=== PATIENT | female | born 1990 | race Caucasian/White ===

== ENCOUNTER 2017-04-13 16:59 | Emergency (ER) | payer MEDICAID ==
[~2017-04-13] VITALS: Ht 157.5 cm; Wt 59.0 kg
[~2017-04-13 16:59] MED LIST: DARVOCET-N 1001 EACH PO; DEPO-PROVER150 MG/M2 IM; FLEXERIL10 MG PO; IBU-8800 MG PO; LORAZEPAM0.5 MG/TAB FT; LORTAB 5/500 501 TAB PO; MEDROL 4MG. DOSE4 MG PO; MOTRIN400 MG PO; SEPTRA DS 800 M1 TAB PO; SULFAMETHOXAZOL1 TA6 PO; TAMIFLU 75MG CA75 MG PO; ZITHROMAX Z PA250 MG PO; ZITHROMAX Z-PA250 M1 PO; ZOLOFT 50MG TAB50 MG PO
--- NOTE | 2017-04-13 17:42 | Emergency Room Report ---
History of Present Illness Time Seen by 524Clive Presenting Problem in Triage Pt arrived:Walked Presenting Problem:PT REPORTS INTERMITTENT L ANKLE PAIN FOR APPROX 2 YEARS, PT REPORTS SHE BROKE HER ANKLE 2 YEARS AND HAD INTERMITTENT PAIN SINCE THEN. 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 N Clinical Suspician of Infection? N Mental Status: 1 - Regular (Normal Baseline) Sepsis Risk:Low Sepsis Risk Have you (or family members/close friends) recently traveled outside the [place]? N If Yes, where/when: Have you had exposure to infectious disease within the past month? N TB? Other? Specify: L foot pain after turning foot three days ago; has chronic pain as well to left lateral foot. Has a little swelling, no redness. Hx of fracture several years ago and has had pain since that time. No ankle pain. No numbness. ALLERGIES Coded Allergies: ampicillin (Intermediate, I-HIVES 09/19/15) Home Medications Reported Medications No Known Home Medications History Medical History General CAD? No Angina: No [place]: No Hypertension? No Hyperlipidemia? No CHF? No DVT? No PE? No COPD? No Asthma? Yes Anemia? No GERD? No Gastric ulcers? No GI Bleed? No Hernia? No Thyroid Problems? No Hypothyroidism? No CVA? No Seizures? No Diabetes? No Renal Insuffiency? No End Stage Renal Disease? No UTI? No Stones? No BPH? No GB Disease: No Nephritic Syndrome? No Asplenia? No Hepatitis? No Sickle Cell Disease? No Arthritis? No Migraines? No Cataracts? No Glaucoma? No MRSA? No HIV? No TB? No Anxiety? Yes Depression? Yes Cancer? No More? 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 Hx LMP N/A Family History Family Hx Diabetes Yes CAD Yes Hypertension Yes Hyperlipidemia Yes Cancer No TB No Social History Smoking Hx Smoker: Current Every Day Smoker Tobacco: Yes Type Cigarettes Packs/day < 1 Pack Alcohol Alcohol: No Review of Systems All Other Systems Reviewed and Negative Musculoskeletal see HPI Physical Exam Vital Signs Vital Signs Date Time Temp Pulse Resp B/P Pulse O2 O2 Flow FiO2 Ox Delivery Rate 04/13 1709 98.0 62 18 120/81 98 General Appearance normal appearance, WD/WN, no apparent distress Eye Exam - bilateral eye normal exam Respiratory Status No: respiratory distress. Cardiovascular no peripheral edema, normal peripheral pulses Extremities normal range of motion, normal inspection, normal capillary refill, No edema, some subjective tenderness along dorsolateral edge of proximal foot w/ o edema, crepitus, deformities, stepoffs, or streaks. n/v intact with brisk CR, sensate throughout. FROM all toes, ankle, knee. Wt bearing. Neurologic alert, normal exam, no motor/sensory deficits, oriented x 3 Medical Decision Making LABS/Meds/Orders Pt receiving controlled substance in ED? No Results/Orders Orders Procedure Date/time Status FOOT-LT-3 VIEWS 04/13 1749 Active XRAY/CT/US XRAY/CT/US XRAY foot XR interpretation by reviewed by me Xray Results normal/NAD, no fracture seen Departure Departure Time of Disposition 1808 Disposition DC Home or Self Care(routine) Clinical Impression Primary Impression: Left foot pain Condition STABLE Referrals NO REFERRAL (Family) Patient Instructions DI for Foot Pain Additional Instructions [phone] Call specialty clinic for an appointment with the medical secretary, Dr. Li, Rx Naproxen Discharge Counseling Counseled pt/family regarding diagnosis, test results, medications/RX, home care, follow up needs Prescriptions Current Visit Scripts NAPROXEN (NAPROXEN 500MG TAB) 500 MG PO BIDP PRN pain #20 TAB ED Critical Care Critical Care No at 1811
--- NOTE | 2017-04-13 17:42 | Emergency Room Report ---
History of Present Illness Time Seen by 162Clive Presenting Problem in Triage Pt arrived:Walked Presenting Problem:PT REPORTS INTERMITTENT L ANKLE PAIN FOR APPROX 2 YEARS, PT REPORTS SHE BROKE HER ANKLE 2 YEARS AND HAD INTERMITTENT PAIN SINCE THEN. 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 N Clinical Suspician of Infection? N Mental Status: 1 - Regular (Normal Baseline) Sepsis Risk:Low Sepsis Risk Have you (or family members/close friends) recently traveled outside the [place]? N If Yes, where/when: Have you had exposure to infectious disease within the past month? N TB? Other? Specify: L foot pain after turning foot three days ago; has chronic pain as well to left lateral foot. Has a little swelling, no redness. Hx of fracture several years ago and has had pain since that time. No ankle pain. No numbness. ALLERGIES Coded Allergies: ampicillin (Intermediate, I-HIVES 09/19/15) Home Medications Reported Medications No Known Home Medications History Medical History General CAD? No Angina: No [place]: No Hypertension? No Hyperlipidemia? No CHF? No DVT? No PE? No COPD? No Asthma? Yes Anemia? No GERD? No Gastric ulcers? No GI Bleed? No Hernia? No Thyroid Problems? No Hypothyroidism? No CVA? No Seizures? No Diabetes? No Renal Insuffiency? No End Stage Renal Disease? No UTI? No Stones? No BPH? No GB Disease: No Nephritic Syndrome? No Asplenia? No Hepatitis? No Sickle Cell Disease? No Arthritis? No Migraines? No Cataracts? No Glaucoma? No MRSA? No HIV? No TB? No Anxiety? Yes Depression? Yes Cancer? No More? 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 LMP N/A Family History Family Hx Diabetes Yes CAD Yes Hypertension Yes Hyperlipidemia Yes Cancer No TB No Social History Smoking Hx Smoker: Current Every Day Smoker Tobacco: Yes Type Cigarettes Packs/day < 1 Pack Alcohol Alcohol: No Review of Systems All Other Systems Reviewed and Negative Musculoskeletal see HPI Physical Exam Vital Signs Vital Signs Date Time Temp Pulse Resp B/P Pulse O2 O2 Flow FiO2 Ox Delivery Rate 04/13 1709 98.0 62 18 120/81 98 General Appearance normal appearance, WD/WN, no apparent distress Eye Exam - bilateral eye normal exam Respiratory Status No: respiratory distress. Cardiovascular no peripheral edema, normal peripheral pulses Extremities normal range of motion, normal inspection, normal capillary refill, No edema, some subjective tenderness along dorsolateral edge of proximal foot w/ o edema, crepitus, deformities, stepoffs, or streaks. n/v intact with brisk CR, sensate throughout. FROM all toes, ankle, knee. Wt bearing. Neurologic alert, normal exam, no motor/sensory deficits, oriented x 3 Medical Decision Making LABS/Meds/Orders Pt receiving controlled substance in ED? No Results/Orders Orders Procedure Date/time Status FOOT-LT-3 VIEWS 04/13 1749 Active XRAY/CT/US XRAY/CT/US XRAY foot XR interpretation by reviewed by me Xray Results normal/NAD, no fracture seen Departure Departure Time of Disposition 1808 Disposition DC Home or Self Care(routine) Clinical Impression Primary Impression: Left foot pain Condition STABLE Referrals NO REFERRAL (Family) Patient Instructions DI for Foot Pain Additional Instructions [phone] Call specialty clinic for an appointment with the roadway technician, Dr. Li, Rx Naproxen Discharge Counseling Counseled pt/family regarding diagnosis, test results, medications/RX, home care, follow up needs Prescriptions Current Visit Scripts NAPROXEN (NAPROXEN 500MG TAB) 500 MG PO BIDP PRN pain #20 TAB ED Critical Care Critical Care No at 1811
[2017-04-13] MEDS ORDERED: NAPROXEN SODIU500 MG PO (18:11)
[2017-04-13 18:35] VITALS: BP 107/78
--- NOTE | 2017-04-13 20:01 | RADIOLOGY REPORT PS360 ---
FOOT-LT-3 VIEWS HISTORY: Pain following injury remote hx of fx and turned foot three days ago pain latera ORDERING PHYSICIAN: Santa Russ MD PATIENT AGE: 26 years COMPARISON: None FINDINGS: No fracture or dislocation. No lytic or blastic change. There is normal mineralization.. The joint spaces are well-preserved. No significant degenerative/arthritic changes. No erosive changes evident. IMPRESSION: Negative ankle, no acute finding
== END 2017-04-13 18:35 | disposition home or self-care (01) ==
LOC: ER 16:59
DX: M79.672 Pain in left foot (principal); Z88.1 Allergy status to other antibiotic agents; J45.909 Unspecified asthma, uncomplicated; F41.8 Other specified anxiety disorders; F17.210 Nicotine dependence, cigarettes, uncomplicated

== ENCOUNTER → 2017-05-06 | Outpatient (CLI) | payer MEDICAID ==
[~2017-05-06] MED LIST changes: +NAPROXEN SODIU500 MG PO
[2017-05-06 15:23] LABS: HEMOGLOBIN 14.9 g/dL (12.2-16.2); LYMPH # 2.2 K/mm3 (0.7-4.5); LYMPH % 31.2 % (10-50.0)
[2017-05-06 16:30] LABS: BUN 14 mg/dL (7-18)
[2017-05-06 16:36] LABS: GFR (ESTIMATED) 120 ML/MIN (59-)
== END ==
LOC: LAB 14:45 → RT 14:45
PROVIDERS: Physician Assistant
DX: R00.1 Bradycardia, unspecified (principal); R00.2 Palpitations; Z86.2 Personal history of diseases of the blood and blood-forming organs and certain disorders involving the immune mechanism

== ENCOUNTER → 2017-05-12 | Outpatient (CLI) | payer MEDICAID ==
--- NOTE | 2017-05-12 21:54 | RADIOLOGY REPORT PS360 ---
PROCEDURE: 2-D M-mode and Doppler study INDICATIONS FOR THE TEST: Chest pain COPD Heart Murmur Tobacco Smoking PalpitationsX Fatigue Syncope Edema Hypertension Diabetes Mellitus Rheumatic Fever SOB ALMAZAN Obesity Hyperlipidemia Family History HD Additional History BRADYCARDIA PATIENT INFORMATION HEIGHT: 62 WEIGHT:148 GENDER: Female B/P:110/70 2-D/M-MODE INTERPRETATION: 2-D MEASUREMENTS OBSERVED VALUES IN CMS Right Ventricular Dimension (RVDd) 1.5 Interventricular Septum (Thickness)(IVsd) .7 Left Ventricular Internal Dimensions(LVIDd) 5.7 Left Ventricular Posterior Wall (Thickness)(LVPWd) .7 Aortic Root 2.5 Aortic Cusp Separation 1.7 Left Atrial Dimensions (LAD) 3.7 2D 1. Left atrium is normal size, left ventricle is normal size, there is no concentric left ventricular hypertrophy, visually estimated ejection fraction 55% with no obvious regional wall motion abnormality. 2. The right atrium and right ventricle are normal size and contractility. 3. The aortic, mitral and tricuspid valves are grossly normal. 4. The pulmonic valve is poorly visualized. 5. No significant pericardial effusion noted. DOPPLER INTERROGATION: Doppler interrogation of the aortic, mitral and tricuspid valvular presence of mild mitral and tricuspid regurgitation, tricuspid regurgitant jet velocity is insufficient for calculation of the right ventricular systolic pressure, diastolic parameters are within normal range. CONCLUSION: 1. Normal left ventricular size, preserved left ventricular systolic function, visually estimated ejection fraction 55% with no obvious regional wall motion abnormalities. Diastolic parameters are within normal range. 2. Mild mitral and tricuspid regurgitation. 3. No significant pericardial effusion noted.
== END ==
LOC: RT 15:10
DX: R00.1 Bradycardia, unspecified (principal); R00.2 Palpitations